=== PATIENT | male | born 1950 | race Caucasian/White ===

== ENCOUNTER 2017-09-03 20:39 | Emergency (ER) | payer OTHER, MEDICARE ==
[~2017-09-03 20:39] MED LIST: DEXA.1%O EACH EYE; FINA5TAB2 PO; IBUP-232 PO; LISI10TA3 PO; ROPI1TAB PO; SULF1TAB23 PO; TAMS0.4C4 PO; VIAG100T PO; [UNRECOGNIZED DRUG - CODE]
[2017-09-03 20:53] VITALS: BP 86/51; PULSE 59; RESP 14; TEMP 97.3; O2SAT 100
[2017-09-03 21:08] VITALS: BP 111/55; PULSE 52; RESP 16; O2SAT 95
[2017-09-03] MEDS ORDERED: SODIUM CHLORID 0.9% 500 ML INJ 500 ML IV ONE (21:30)
[2017-09-03] MEDS ORDERED: SODIUM CHLORIDE 0.9% FLUSH 10 ML FLUSH IVF PRN (21:30)
[2017-09-03 22:07] LABS: AUTOMATED NEUTROPHIL # 4.5 TH/MM3 (1.8-7.7); BASOPHIL % 0.5 % (0.0-2.0); EOSINOPHIL % 0.7 % (0.0-4.0); HEMATOCRIT 41.8 % (39.0-51.0); HEMOGLOBIN 14.1 GM/DL (13.0-17.0); LYMPH % 16.6 % (9.0-44.0); MEAN CELL VOLUME 89.8 FL (80.0-100.0); MEAN CORPUSCULAR HEMOGLOBIN 30.3 PG (27.0-34.0); MEAN CORPUSCULAR HGB CONC 33.7 % (32.0-36.0); MEAN PLATELET VOLUME 9.9 FL (7.0-11.0); MONO % 6.1 % (0.0-8.0); MONOCYTE # 0.4 TH/MM3 (0-0.9); NEUT % 76.1 % (16.0-70.0); PLATELET COUNT 174 TH/MM3 (150-450); RED BLOOD COUNT 4.65 MIL/MM3 (4.50-5.90); RED CELL DISTRIBUTION WIDTH 13.3 % (11.6-17.2); WHITE BLOOD COUNT 5.9 TH/MM3 (4.0-11.0)
[2017-09-03 22:20] LABS: ALBUMIN 3.8 GM/DL (3.4-5.0); AST (GOT) 29 U/L (15-37); BICARBONATE 23.4 MEQ/L (21.0-32.0); BLOOD UREA NITROGEN 21 MG/DL (7-18); CALCIUM 8.1 MG/DL (8.5-10.1); CHLORIDE 105 MEQ/L (98-107); CREATININE 1.24 MG/DL (0.60-1.30); GLOMERULAR FILTRATION RATE 58 ML/MIN (>89); GLUCOSE,RANDOM 128 MG/DL (74-106); MAGNESIUM 2.1 MG/DL (1.5-2.5); SODIUM (NA) 140 MEQ/L (136-145)
[2017-09-03 22:26] LABS: INTERNATIONAL NORMALIZED RATIO 1.1 RATIO; PROTHROMBIN TIME - PATIENT 10.9 SEC (9.8-11.6)
[2017-09-03 22:29] LABS: ALKALINE PHOSPHATASE 41 U/L (45-117); ALT (GPT) 43 U/L (12-78); TOTAL BILIRUBIN ADULT 0.3 MG/DL (0.2-1.0); TOTAL PROTEIN 6.7 GM/DL (6.4-8.2); TROPONIN I LESS THAN 0.02 NG/ML (0.02-0.05)
--- NOTE | 2017-09-03 22:35 | RADRPT ---
EXAM DATE/TIME: 09/03/2017 21:42 [facility] COMPARISON: CHEST SINGLE AP, January 31, 2015, 13:18. INDICATIONS : Syncope. MEDICAL HISTORY : Hypertension. SURGICAL HISTORY : None. ENCOUNTER: Initial ACUITY: >1 year PAIN SCORE: 0/10 LOCATION: Bilateral chest FINDINGS: A single view of the chest demonstrates the lungs to be symmetrically aerated without evidence of mas s, infiltrate or effusion. The cardiomediastinal contours are unremarkable. Osseous structures are intact. CONCLUSION: The lungs are clear. Acosta Milligan MD on September 03, 2017 at 22:33 Board Certified Radiologist. This report was verified electronically.
[2017-09-03 22:36] VITALS: BP_SYST 100; BP_SYST 97; BP_DIAS 56; BP_DIAS 60; PULSE 55; RESP 16; O2SAT 98
--- NOTE | 2017-09-03 23:51 | RADRPT ---
EXAM DATE/TIME: 09/03/2017 23:32 [facility] COMPARISON: No previous studies available for comparison. INDICATIONS : Dizziness, syncopal episode. RADIATION DOSE: 36.34 CTDIvol (mGy) MEDICAL HISTORY : Hypertension. SURGICAL HISTORY : None. ENCOUNTER: Initial ACUITY: 1 day PAIN SCALE: 0/10 LOCATION: cranial TECHNIQUE: Multiple contiguous axial images were obtained of the head. Using automated exposure control and adj ustment of the mA and/or kV according to patient size, radiation dose was kept as low as reasonably a chievable to obtain optimal diagnostic quality images. DICOM format image data is available electro nically for review and comparison. FINDINGS: CEREBRUM: There is mild generalized atrophy. Ventricles are normal. No evidence of midline shift, mass lesion, hemorrhage or acute infarction. No extra-axial fluid collections are seen. POSTERIOR FOSSA: The cerebellum and brainstem are intact. The 4th ventricle is midline. The cerebellopontine angle i s unremarkable. EXTRACRANIAL: Visualized sinuses are clear. SKULL: The calvaria is intact. No evidence of skull fracture. CONCLUSION: No acute intracranial abnormality is identified. Domenico Gtz MD on September 03, 2017 at 23:47 Board Certified Radiologist. This report was verified electronically.
[2017-09-04 00:21] VITALS: BP 128/61; PULSE 53; RESP 18; O2SAT 98
[2017-09-04 01:11] VITALS: BP_SYST 135; BP_SYST 153; BP_DIAS 68; BP_DIAS 72; RESP 18
[2017-09-04 07:20] VITALS: BP 168/78; PULSE 56; RESP 17; O2SAT 98
--- NOTE | 2017-09-04 07:41 | PD ---
HPI . Dizziness Chief Complaint: Dizziness Time Seen by Provider: 21:01 Travel History International Travel<30 days: No Contact w/Intl Traveler<30days: No Traveled to known affect area: No History of Present Illness HPI 67-year-old male recently started on beta-cathy by his doctors [facility] the [facility], notes being extremely lightheaded when standing, blood pressure noted to be 75/ 40 upon standing and has had frequent falls as per patient's family members. Patient denies having any headache visual changes neck pain or stiffness or any focal weakness or tingling currently. Patient's blood pressure presentation is 111/70 supine. Patient is symptomatic upon standing. Patient has no history of rectal bleeding or dark stools. Denies fever chills sweats. PFSH Past Medical History Narrative Medical Past medical history reviewed Heart Rhythm Problems: No Cancer: No Cardiovascular Problems: Yes (HTN) High Cholesterol: Yes Chest Pain: Yes Congestive Heart Failure: No Cerebrovascular Accident: No Endocrine: No Genitourinary: No Immune Disorder: No Musculoskeletal: Yes Neurologic: Yes (HISTORY OF BELLS PALSY, RLS) Psychiatric: No Reproductive: No Respiratory: No Migraines: No Seizures: No Past Surgical History Abdominal Surgery: No Cardiac Surgery: No Ear Surgery: No Endocrine Surgery: No Eye Surgery: No Genitourinary Surgery: No Gynecologic Surgery: No Joint Replacement: No Oral Surgery: No Pacemaker: No Thoracic Surgery: No Other Surgery: Yes Social History Alcohol Use: Yes (occ) Tobacco Use: No Substance Use: No Allergies-Medications (Allergen,Severity, Reaction): Coded Allergies: Penicillins (Verified Allergy, Unknown, 07/17/17) amoxicillin (Verified Allergy, Unknown, 07/17/17) atorvastatin (Verified Allergy, Unknown, 07/17/17) pravastatin (Verified Allergy, Unknown, 07/17/17) rosuvastatin (Verified Allergy, Unknown, 07/17/17) simvastatin (Verified Allergy, Unknown, 07/17/17) Reported Meds & Prescriptions Reported Meds & Active Scripts Active Reported Ibuprofen 600 Mg Tab 600 Mg PO BID PRN Viagra (Sildenafil Citrate) 100 Mg Tab 100 Mg PO DAILY PRN Dexamethasone Opth Drops (Dexamethasone Sodium Phosphate) 0.1% Soln 1 Drop EACH EYE Q4H Sulfamethoxazole-Trimethoprim 800-160 Mg Tab 1 Tab PO BID Ropinirole 1 Mg Tab 1 Mg PO QID Ocusoft Lid Scrub (Eyelid Cleanser Comb No.7) 1 Each Kit Tamsulosin (Tamsulosin HCl) 0.4 Mg Cap 0.4 Mg PO HS Finasteride 5 Mg Tab 5 Mg PO DAILY Do not crush. Lisinopril 10 Mg Tab 10 Mg PO DAILY Narrative Medication Allergies to medications and medication list reviewed Review of Systems Except as stated in HPI: all other systems reviewed are Neg General / Constitutional: No: Fever Eyes: No: Visual changes HENT: No: Headaches Cardiovascular: No: Chest Pain or Discomfort Respiratory: No: Shortness of Breath Gastrointestinal: No: Abdominal Pain Genitourinary: No: Dysuria Musculoskeletal: No: Pain Skin: No Rash Neurologic: No: Weakness Psychiatric: No: Depression Endocrine: No: Polydipsia Hematologic/Lymphatic: No: Easy Bruising Physical Exam Narrative GENERAL: Awake alert oriented 3 no acute distress vital signs afebrile normal and stable when supine. Patient's blood pressure drops to 90/60 and patient becomes lightheaded upon sitting on edge the bed. Bradycardic at 55 bpm SKIN: Warm and dry. Color is normal no diaphoresis cyanosis or pallor HEAD: Atraumatic. Normocephalic. EYES: Pupils equal and round. No scleral icterus. No injection or drainage. ENT: No nasal bleeding or discharge. Mucous membranes pink and moist. NECK: Trachea midline. No JVD. Supple nontender full range motion CARDIOVASCULAR: Regular rate and rhythm. S1-S2 no murmurs rubs gallops RESPIRATORY: No accessory muscle use. Clear to auscultation. Breath sounds equal bilaterally. GASTROINTESTINAL: Abdomen soft, non-tender, nondistended. Hepatic and splenic margins not palpable. MUSCULOSKELETAL: Extremities without clubbing, cyanosis, or edema. No obvious deformities. NEUROLOGICAL: Awake and alert. No obvious gross focal deficit PSYCHIATRIC: Appropriate mood and affect; insight and judgment normal. Data Data Last Documented VS Vital Signs Date Time Temp Pulse Resp B/P (MAP) Pulse Ox O2 Delivery O2 Flow Rate FiO2 09/04/17 07:20 56 17 168/78 (108) 98 Room Air 09/04/17 00:21 2.00 09/03/17 20:53 97.3 Orders Orders Electrocardiogram (09/03/17 21:23) B-Type Natriuretic Peptide (09/03/17 21:23) Ckmb (Isoenzyme) Profile (09/03/17 21:23) Complete Blood Count With Diff (09/03/17 21:) Comprehensive Metabolic Panel (09/03/17:) Magnesium (Mg) (09/03/17:) Prothrombin Time / Inr (Pt) (09/03/17:) Act Partial Throm Time (Ptt) (09/03/17 21:) Troponin I (09/03/17 21:) Chest, Single Ap (09/03/17:) Ecg Monitoring (09/03/17:) Bilateral Bp Monitoring (09/03/17:) Iv Access Insert/Monitor (09/03/17:) Oximetry (09/03/17:) Oxygen Administration (09/03/17:) Sodium Chloride 0.9% Flush (Ns Flush) (09/03/17 21:30) Sodium Chlorid 0.9% 500 Ml Inj (Ns 500 M (09/03/17 21:30) CKMB (09/03/17 21:30) CKMB% (09/03/17 21:30) Ct Brain W/O Iv Contrast(Rout) (09/03/17 ) Troponin I (09/04/17 00:16) Orthostatic Vital Signs (09/04/17 01:03) Troponin I (09/04/17 04:31) Orthostatic Vital Signs (09/04/17 07:34) Labs Laboratory Tests Test 09/03/17 21:30 09/04/17 00:40 09/04/17 04:45 White Blood Count 5.9 TH/MM3 Red Blood Count 4.65 MIL/MM3 Hemoglobin 14.1 GM/DL Hematocrit 41.8 % Mean Corpuscular Volume 89.8 FL Mean Corpuscular Hemoglobin 30.3 PG Mean Corpuscular Hemoglobin Concent 33.7 % Red Cell Distribution Width 13.3 % Platelet Count 174 TH/MM3 Mean Platelet Volume 9.9 FL Neutrophils (%) (Auto) 76.1 % Lymphocytes (%) (Auto) 16.6 % Monocytes (%) (Auto) 6.1 % Eosinophils (%) (Auto) 0.7 % Basophils (%) (Auto) 0.5 % Neutrophils # (Auto) 4.5 TH/MM3 Lymphocytes # (Auto) 1.0 TH/MM3 Monocytes # (Auto) 0.4 TH/MM3 Eosinophils # (Auto) 0.0 TH/MM3 Basophils # (Auto) 0.0 TH/MM3 CBC Comment DIFF FINAL Differential Comment Prothrombin Time 10.9 SEC Prothromb Time International Ratio 1.1 RATIO Activated Partial Thromboplast Time 24.2 SEC Blood Urea Nitrogen 21 MG/DL Creatinine 1.24 MG/DL Random Glucose 128 MG/DL Total Protein 6.7 GM/DL Albumin 3.8 GM/DL Calcium Level 8.1 MG/DL Magnesium Level 2.1 MG/DL Alkaline Phosphatase 41 U/L Aspartate Amino Transf (AST/SGOT) 29 U/L Alanine Aminotransferase (ALT/SGPT) 43 U/L Total Bilirubin 0.3 MG/DL Sodium Level 140 MEQ/L Potassium Level 3.9 MEQ/L Chloride Level 105 MEQ/L Carbon Dioxide Level 23.4 MEQ/L Anion Gap 12 MEQ/L Estimat Glomerular Filtration Rate 58 ML/MIN Total Creatine Kinase 777 U/L Creatine Kinase MB 21.6 NG/ML Creatine Kinase MB % 2.8 % Troponin I LESS THAN 0.02 NG/ML LESS THAN 0.02 NG/ML LESS THAN 0.02 NG/ML B-Type Natriuretic Peptide 93 PG/ML MDM Medical Decision Making Medical Screen Exam Complete: Yes Emergency Medical Condition: Yes Medical Record Reviewed: Yes Differential Diagnosis Orthostatic hypotension, medication reaction, dehydration/hypovolemia Narrative Course Patient given gentle IV fluids, tolerating oral fluids. Patient observed in ED , had cardiac enzymes performed 03 and 6 hours all negative. Patient had repeat orthostatic blood pressure and vital signs taken that normalized. Discharge in a.m. Diagnosis Primary Impression: Adverse drug effect Qualified Codes: T88.7XXA - Unspecified adverse effect of drug or medicament, initial encounter Additional Impressions: Orthostatic hypotension Dehydration Patient Instructions: General Instructions, Hypotension (ED) Additional Instructions: Discontinue metoprolol until further evaluation by her doctor. Drink plenty of fluids. Return for worsening Disposition: 01 DISCHARGE HOME Condition: Stable Sanjeev Kim MD Sep 04, 2017 07:41
[2017-09-04 07:50] VITALS: BP_SYST 150; BP_SYST 173; BP_SYST 175; BP_DIAS 67; BP_DIAS 72; BP_DIAS 85
--- NOTE | 2017-09-04 11:07 | EKG ---
Date Performed: 09/03/2017 Time Performed: 22:31:57 PTAGE: 67 years EKG: SINUS BRADYCARDIA MARKED LEFT AXIS DEVIATION INCOMPLETE RBBB NONSPECIFIC ST/T WAVE ABNORMAL ITY ABNORMAL ECG PREVIOUS TRACING : 01/31/2015 12.00 DOCTOR: Ryan Armenta Interpretating Date/Time 09/04/2017 11:06:19
== END 2017-09-04 08:06 | disposition home or self-care (01) ==
LOC: NEPE 20:39
DX: I95.1 Orthostatic hypotension (principal); E86.0 Dehydration; T50.905A Adverse effect of unspecified drugs, medicaments and biological substances, initial encounter; R00.1 Bradycardia, unspecified; I10 Essential (primary) hypertension; E78.00 Pure hypercholesterolemia, unspecified; Z88.0 Allergy status to penicillin; Z88.8 Allergy status to other drugs, medicaments and biological substances; Z79.899 Other long term (current) drug therapy
CPT/HCPCS: 70450; 71045; 80053; 82550; 82552; 83735; 83880; 84484; 85025; 85610; 85730; 93005; 96360; 96361; 99285; J7040